=== PATIENT | male | born 1990 | race Two or more races ===

== ENCOUNTER → 2025-02-04 | Emergency (ER) | payer OTHER ==
[~2025-02-04] VITALS: Ht 172.7 cm; Wt 49.9 kg
[~2025-02-04] MED LIST: CEFTRIAXONE SODIUM 1,000 MG VIAL IM ONE; TETANUS & DIPHTHERIA TOX,ADULT 0.5 ML VIAL IM ONE
== END | disposition home or self-care (01) ==
LOC: ER 19:55
DX: S80.812A Abrasion, left lower leg, initial encounter (principal); W22.8XXA Striking against or struck by other objects, initial encounter; Y93.89 Activity, other specified; Y92.488 Other paved roadways as the place of occurrence of the external cause; S80.852A Superficial foreign body, left lower leg, initial encounter
CPT/HCPCS: 73590; 96372; 99283; J0696